=== PATIENT | male | born 1965 | race Caucasian/White ===

== ENCOUNTER 2017-04-18 11:21 | Observation (INO) | payer OTHER ==
[~2017-04-18] VITALS: Ht 190.5 cm; Wt 118.2 kg
[2017-04-18 12:15] VITALS: BP 168/94
[2017-04-18 13:22] LABS: HEMATOCRIT 45.9 % (39.2-51.8); HEMOGLOBIN 15.3 g/dL (13.7-18.0); WHITE BLOOD COUNT 7.6 x10^3/uL (3.4-10)
[2017-04-18 13:32] LABS: BLOOD UREA NITROGEN 12 mg/dL (7-18)
[2017-04-18 13:37] LABS: IS PT STATUS REG ER OR PRE ER? NO
[2017-04-18] MEDS: ASPIRIN 325 MG TABLET PO SCH (14:30)
[2017-04-18] MEDS: PLEASE ENTER HEIGHT AND WEIGHT MC SCH ×2 (14:30→21:58)
[2017-04-18] MEDS ORDERED: OMNIPAQUE 350 MG/ML, 100ML BOTTLE ONE (15:56)
[2017-04-18] MEDS ORDERED: ASPIRIN 325 MG TABLET EC ONE (16:08)
[2017-04-18 20:16] LABS: IS PT STATUS REG ER OR PRE ER? NO
[2017-04-18] MEDS ORDERED: ATORVASTATIN 10 MG TABLET PO SCH (21:00)
[2017-04-18 21:48] VITALS: BP 132/83
[2017-04-19 02:33] LABS: IS PT STATUS REG ER OR PRE ER? NO
[2017-04-19 05:11] VITALS: BP 138/82
[2017-04-19] MEDS: PLEASE ENTER HEIGHT AND WEIGHT MC SCH (06:30)
[2017-04-19 06:40] VITALS: BP 118/79
[2017-04-19] MEDS: ASPIRIN 325 MG TABLET PO SCH (08:40)
[2017-04-19] MEDS ORDERED: LOSARTAN 50MG TABLET PO SCH (09:00)
[2017-04-19] MEDS ORDERED: ATOR10TA9 PO (12:22)
[2017-04-19] MEDS ORDERED: LOSA50TA2 PO (12:22)
== END 2017-04-19 13:25 | disposition home or self-care (01) ==
LOC: INTOOBSV 11:30 → 5SO 11:30
PROVIDERS: ADMIT Internal Medicine; ATTEND Internal Medicine
DX: R07.89 Other chest pain (principal); I10 Essential (primary) hypertension; E78.5 Hyperlipidemia, unspecified; K21.9 Gastro-esophageal reflux disease without esophagitis; M10.9 Gout, unspecified; G47.33 Obstructive sleep apnea (adult) (pediatric); Z80.42 Family history of malignant neoplasm of prostate; Z85.820 Personal history of malignant melanoma of skin; Z87.891 Personal history of nicotine dependence
CPT/HCPCS: 36415; 71022; 71275; 80048; 84484; 85025; 85379; 93005; 93017; 93306; G0378; Q9967

== ENCOUNTER → 2018-07-07 | Outpatient (CLI) | payer OTHER ==
[~2018-07-07] MED LIST: ATOR10TA9 PO; LOSA50TA2 PO
== END | disposition home or self-care (01) ==
LOC: RAD 11:49
PROVIDERS: ATTEND Internal Medicine
DX: S22.32XA Fracture of one rib, left side, initial encounter for closed fracture (principal); J98.11 Atelectasis; X58.XXXA Exposure to other specified factors, initial encounter; Y93.89 Activity, other specified; Y92.89 Other specified places as the place of occurrence of the external cause; Y99.8 Other external cause status

== ENCOUNTER 2020-06-19 16:15 | Observation (INO) | payer OTHER ==
[~2020-06-19] VITALS: Ht 190.5 cm; Wt 121.4 kg
[2020-06-19] MEDS ORDERED: ASPIRIN 81 MG TABLET CHEW ONE (16:32)
[2020-06-19] MEDS ORDERED: ASPIRIN 81 MG TABLET CHEW PO ONE (17:00)
[2020-06-19 17:04] LABS: BASOPHILS % (AUTO) 1 % (0-1); EOSINOPHILS % (AUTO) 1 % (1-7); LYMPHOCYTES % (AUTO) 23 % (22-44); MEAN CORPUSCULAR HEMOGLOBIN 30.5 pg (27.5-34.5); MEAN CORPUSCULAR HGB CONC 33.3 g/dL (33.2-36.2); MEAN PLATELET VOLUME 8.8 fL (7.4-10.4); MONOCYTES % (AUTO) 7 % (2-9); NEUTROPHILS % (AUTO) 68 % (42-75); PLATELET COUNT 253 x10^3/uL (130-400); RED BLOOD COUNT 4.97 x10^6/uL (4.38-5.82); RED CELL DISTRIBUTION WIDTH 12.5 % (9.4-14.8)
[2020-06-19 17:13] LABS: ANION GAP 6 mmol/L (5-15); CALCIUM 8.8 mg/dL (8.5-10.1); CHLORIDE 108 mmol/L (98-107); CREATININE 1.21 mg/dL (0.7-1.3)
[2020-06-19 17:14] LABS: ALANINE AMINOTRANSFERASE 39 U/L (12-78)
[2020-06-19 17:17] LABS: MD NO
[2020-06-19 17:18] LABS: ALKALINE PHOSPHATASE 59 U/L (45-117); BILIRUBIN,TOTAL 0.4 mg/dL (0.2-1.0); TOTAL PROTEIN 7.5 g/dL (6.4-8.2); TROPONIN I < 0.015 ng/mL (0.000-0.045)
[2020-06-19] MEDS ORDERED: BISACODYL 10 MG SUPP PR PRN (19:30)
[2020-06-19] MEDS ORDERED: POLYETHYLENE GLYCOL 17 GM PACKET PO PRN (19:30)
[2020-06-19] MEDS ORDERED: SODIUM CHLORIDE FLUSH 10ML SYR IVF ONE (19:30)
[2020-06-19] MEDS ORDERED: ACETAMINOPHEN 325 MG TABLET PO PRN (19:30)
[2020-06-19] MEDS ORDERED: ONDANSETRON ODT 4 MG PO PRN (19:30)
[2020-06-19] MEDS ORDERED: morphine SULFATE 10 MG/ML, 1ML IVPush PRN (19:30)
[2020-06-19] MEDS ORDERED: NITROGLYCERIN 0.4 MG BOTTLE (25 TABS) SL PRN (19:30)
[2020-06-19 19:53] LABS: TROPONIN I < 0.015 ng/mL (0.000-0.045)
--- NOTE | 2020-06-19 20:14 | NUR ---
first contact with pt, iv placed, pt undressed and placed on monitor. nsr no ectopy, denies any cp, sob at this time. being admitted for stress test tomorrow, cardiac work up. asa was given upon arrival to ER.
[2020-06-19] MEDS ORDERED: ATORVASTATIN 10 MG TABLET PO SCH (21:00)
[2020-06-19 21:30] VITALS: BP 130/75
[2020-06-19] MEDS: SODIUM CHLORIDE FLUSH 10ML SYR IVF SCH (21:43)
[2020-06-19] MEDS ORDERED: MELATONIN 5 MG TABLET ONE (22:25)
[2020-06-19] MEDS ORDERED: MELATONIN 5 MG TABLET PO PRN (22:30)
[2020-06-19 22:34] VITALS: BP 130/75
[2020-06-19 23:16] LABS: TROPONIN I < 0.015 ng/mL (0.000-0.045)
[2020-06-20 03:46] VITALS: BP 111/73
[2020-06-20] MEDS ORDERED: ASPIRIN 81 MG TABLET EC PO SCH (06:00)
[2020-06-20 07:01] LABS: CHOL/HDL RATIO 2.9; CHOLESTEROL, TOTAL 148 mg/dL (140-239); HDL CHOL % 34 % (26-37); HDL CHOLESTEROL (DIRECT) 51 mg/dL (40-60); LDL CHOLESTEROL,CALCULATED 83 mg/dL (54-169); LDL/HDL RATIO 1.6 (0.5-3.0); TRIGLYCERIDES 70 mg/dL (50-200); TROPONIN I < 0.015 ng/mL (0.000-0.045); VLDL CHOLESTEROL 14 mg/dL (0-25)
[2020-06-20 08:33] VITALS: BP 122/75
[2020-06-20] MEDS ORDERED: LOSARTAN 50MG TABLET PO SCH (09:00)
[2020-06-20] MEDS ORDERED: SENNA/DOCUSATE TABLET PO SCH (09:00)
[2020-06-20] MEDS: SODIUM CHLORIDE FLUSH 10ML SYR IVF SCH (09:00)
== END 2020-06-20 13:30 | disposition home or self-care (01) ==
LOC: ED 19:09 → EDIP 19:10 → ED 19:19 → 5SO 20:30 → DCLOUNGE 06-20 13:28
PROVIDERS: ADMIT Family Medicine; ATTEND Family Medicine
DX: R07.89 Other chest pain (principal); R07.1 Chest pain on breathing; I10 Essential (primary) hypertension; E78.5 Hyperlipidemia, unspecified; G47.33 Obstructive sleep apnea (adult) (pediatric); E04.2 Nontoxic multinodular goiter; K21.9 Gastro-esophageal reflux disease without esophagitis; Z85.820 Personal history of malignant melanoma of skin; Z79.899 Other long term (current) drug therapy
CPT/HCPCS: 36415; 71045; 78452; 80053; 80061; 84443; 84484; 85025; 93005; 93017; 99285; A9502; G0378